=== PATIENT | female | born 1990 | race Hispanic/Latino ===

== ENCOUNTER 2024-02-15 08:56 | Day surgery (SDC) | payer OTHER ==
[2024-02-15] MEDS: Acetaminophen 500 MG TAB PO SCH (09:42)
[2024-02-15] MEDS: Iron Sucrose Complex 500 MG in Sodium Chloride 0.9% 250 ML 250 ML IVPB SCH (10:17)
[2024-02-15 15:29] VITALS: BP 111/57; TEMP 98.7
== END 2024-02-15 15:29 | disposition home or self-care (01) ==
LOC: ONC/OP 08:56
PROVIDERS: ATTEND Family Medicine
DX: O99.013 Anemia complicating pregnancy, third trimester (principal)
CPT/HCPCS: 96365; 96366; J1756; J7050